=== PATIENT | male | born 2000 | race Caucasian/White ===

== ENCOUNTER 2021-06-20 15:37 | Emergency (ER) | payer OTHER ==
[~2021-06-20] VITALS: Ht 180.3 cm; Wt 87.5 kg
[2021-06-20 16:54] VITALS: BP 106/57
== END 2021-06-20 16:55 | disposition home or self-care (01) ==
LOC: EDH 15:37
DX: R55 Syncope and collapse (principal); R51.9 Headache, unspecified
CPT/HCPCS: 70450; 93005

== ENCOUNTER → 2023-12-16 | Emergency (ER) | payer OTHER ==
[~2023-12-16] VITALS: Ht 180.3 cm; Wt 87.1 kg
[~2023-12-16] MED LIST: AZIT250T9 PO; METH4TAB3 PO
[2023-12-16 19:10] LABS: BASOPHILS # (AUTO) 0.03 K/uL (0.00-0.20); BASOPHILS % (AUTO) 0.3 % (0.0-5.0); EOSINOPHILS # (AUTO) 0.33 K/uL (0.00-0.70); EOSINOPHILS % (AUTO) 3.5 % (0.0-8.0); HEMATOCRIT 48.5 % (42-54); IMMATURE GRANULOCYTE ABSOLUTE 0.03 K/uL (0-1); LYMPHOCYTES # (AUTO) 2.4 K/uL (1.0-4.8); LYMPHOCYTES % (AUTO) 24.8 % (21.0-51.0); MEAN CORPUSCULAR HEMOGLOBIN 30.2 pg (27.0-33.0); MEAN CORPUSCULAR HGB CONC 33.6 g/dL (32.0-36.0); MONOCYTES # (AUTO) 0.7 K/uL (0.1-1.0); MONOCYTES % (AUTO) 7.7 % (3.0-13.0); NEUTROPHILS # (AUTO) 6.1 K/uL (1.8-7.7); NEUTROPHILS % (AUTO) 63.4 % (40.0-77.0); PLATELET COUNT (AUTO) 224 K/uL (130-400); RED BLOOD CELL COUNT(AUTO) 5.39 MIL/uL (4.50-6.20); RED CELL DISTRIBUTION WIDTH 12.8 % (11.0-15.5); WHITE BLOOD COUNT (AUTO) 9.6 K/uL (4.8-10.8)
[2023-12-16 19:20] LABS: POTASSIUM 3.6 mmol/L (3.5-5.1); SARS-CoV-2, RNA, NAAT NEGATIVE SARS CoV-2 (NEGATIVE)
[2023-12-16 19:21] LABS: RAPID GROUP A STREP negative (NEGATIVE)
[2023-12-16 19:30] LABS: INFLUENZA TYPE A Negative For Type A (NEGATIVE); INFLUENZA TYPE B Negative For Type B (NEGATIVE)
[2023-12-16] MEDS: IpraTROPium/alBUTERol SULFATE 3 ML SOLUTION IH ONE (20:43)
[2023-12-16 20:45] VITALS: PULSE 88; RESP 17
[2023-12-16] MEDS: dexaMETHasone SOD PHOSPHATE 4 MG/ML 1ML VIAL IV ONE (21:18)
[2023-12-16 21:21] VITALS: BP 100/60; PULSE 80; RESP 16; TEMP 98.5; O2SAT 98
== END | disposition home or self-care (01) ==
LOC: EDH 18:30
DX: B34.9 Viral infection, unspecified (principal); Z20.822 Contact with and (suspected) exposure to COVID-19
CPT/HCPCS: 99284; 96374; 71045; 87635; 80048; 85025; 87880; 87804 ×2; 83605; 36415; 94640; 84145; J1100